=== PATIENT | female | born 1980 | race Caucasian/White ===

== ENCOUNTER 2020-11-10 12:38 | Inpatient (IN) | payer MEDICAID ==
[~2020-11-10] VITALS: Ht 162.6 cm; Wt 64.0 kg
[~2020-11-10 12:38] MED LIST: CHOL100018 PO; ESCI-8 PO; LACT30L PO; QUET200T PO
[2020-11-10] MEDS ORDERED: HALOPERIDOL 5 MG TABLET PO ONE (14:30)
[2020-11-10] MEDS ORDERED: LORazepam 1 MG TABLET PO ONE (14:30)
[2020-11-10 16:23] LABS: COVID AG,FIA SOURCE NASOPHARYNGEAL
[2020-11-10] MEDS ORDERED: ZOLPIDEM TARTRATE 10 MG TABLET PO PRN (16:45)
[2020-11-10 19:52] LABS: BASOPHILS % (AUTO) 0.8 % (0.0-2.0); HEMOGLOBIN 12.2 g/dL (12.0-16.0); LYMPHOCYTES # (AUTO) 3.8 K/uL (1.0-4.8); LYMPHOCYTES % (AUTO) 43.9 % (22.0-44.0); MEAN CORPUSCULAR HEMOGLOBIN 30.4 pg (26.0-34.0); MEAN CORPUSCULAR HGB CONC 33.8 G/dL (31.0-37.0); MEAN CORPUSCULAR VOLUME 90 fL (80-100); MONOCYTES # (AUTO) 0.8 K/uL (0.1-1.0); MONOCYTES % (AUTO) 9.2 % (2.0-9.0); NEUTROPHILS # (AUTO) 3.7 K/uL (1.8-7.7); NEUTROPHILS % (AUTO) 43.1 % (40.0-70.0); PLATELET COUNT (AUTO) 363 K/uL (150-450); RED CELL DISTRIBUTION WIDTH 14.7 % (11.5-14.5)
[2020-11-10 20:02] LABS: ANION GAP 10 mmol/L (8-16); CALCIUM, TOTAL 8.9 mg/dL (8.8-10.5); CARBON DIOXIDE 24 mmol/L (22-29); CHLORIDE 103 mmol/L (98-107); CREATININE 0.64 mg/dL (0.60-1.30); GLOMERULAR FILTR. RATE CALC > 60 mL/min (>60); GLUCOSE,RANDOM 74 mg/dL (70-110); POTASSIUM 3.2 mmol/L (3.5-5.1); SODIUM SERUM 137 mmol/L (136-145); UREA NITROGEN, BLOOD 6 mg/dL (7-18)
[2020-11-10 20:08] LABS: ALANINE AMINOTRANSFERASE 22 U/L (12-78); ALBUMIN 3.4 g/dL (3.4-5.0); ALKALINE PHOSPHATASE 64 U/L (46-116); ASPARTATE AMINOTRANSFERASE 20 U/L (15-37); BILIRUBIN,TOTAL 0.8 mg/dL (0.1-1.0); TOTAL PROTEIN, SERUM 6.7 g/dL (6.4-8.2)
[2020-11-11] MEDS ORDERED: INFLUENZA VIRUS VACCINE QVS 2020-21 (6MO+)/PF 60 MCG/0.5 ML SYRINGE IM ONE (00:30)
[2020-11-11 00:38] VITALS: BP 100/70
[2020-11-11] MEDS ORDERED: IBUPROFEN 400 MG TABLET PO PRN (07:45)
[2020-11-11] MEDS ORDERED: LOPERAMIDE HCL 2 MG CAPSULE PO PRN (07:45)
[2020-11-11] MEDS ORDERED: MAGNESIUM HYDROXIDE SUSPENSION 30 ML UDCUP PO PRN (07:45)
[2020-11-11] MEDS ORDERED: MAG HYDROX/AL HYDROX/SIMETH ES 30 ML SUSPENSION UDCUP PO PRN (07:45)
[2020-11-11] MEDS ORDERED: NICOTINE 14 MG/24 HOUR PATCH TD PRN (07:45)
[2020-11-11] MEDS ORDERED: CloNIDine HCL 0.1 MG TABLET PO PRN (07:45)
[2020-11-11] MEDS ORDERED: ACETAMINOPHEN 325 MG TABLET PO PRN (07:45)
[2020-11-11] MEDS ORDERED: ONDANSETRON HCL 4 MG TABLET PO PRN (07:45)
[2020-11-11] MEDS ORDERED: PETROLATUM,WHITE 28 GM JELLY TP PRN (07:45)
[2020-11-11] MEDS ORDERED: POTASSIUM CHLORIDE 20 MEQ ER TABLET PO ONE (07:45)
[2020-11-11] MEDS ORDERED: GuaiFENesin/D-METHORPHAN [SUGAR-FREE] 200-20MG/10 ML SYRUP UDCUP PO PRN (07:45)
[2020-11-11] MEDS ORDERED: ALBUTEROL SULFATE HFA 90 MCG/PUFF 8 GM INHALER IH PRN (07:45)
[2020-11-11] MEDS: LORazepam 2 MG TABLET PO PRN ×2 (09:02→21:10)
[2020-11-11] MEDS: ESCITALOPRAM OXALATE 10 MG TABLET PO SCH (12:52)
[2020-11-11 16:24] VITALS: BP 112/76
[2020-11-11] MEDS: HALOPERIDOL 5 MG TABLET PO PRN (21:09)
[2020-11-11] MEDS: QUEtiapine FUMARATE 200 MG TABLET PO SCH (21:11)
[2020-11-12 00:22] VITALS: BP 104/73
[2020-11-12] MEDS: ESCITALOPRAM OXALATE 10 MG TABLET PO SCH (08:09)
[2020-11-12 08:22] VITALS: BP 108/70
[2020-11-12 16:29] VITALS: BP 119/68
[2020-11-12] MEDS: QUEtiapine FUMARATE 200 MG TABLET PO SCH (21:59)
[2020-11-13 02:08] VITALS: BP 114/66
[2020-11-13 08:12] VITALS: BP 101/60
[2020-11-13] MEDS: ESCITALOPRAM OXALATE 10 MG TABLET PO SCH (08:30)
[2020-11-13 16:14] VITALS: BP 100/62
[2020-11-13] MEDS: QUEtiapine FUMARATE 200 MG TABLET PO SCH (20:10)
[2020-11-14 00:21] VITALS: BP 102/67
[2020-11-14 08:32] VITALS: BP 121/74
[2020-11-14] MEDS: ESCITALOPRAM OXALATE 10 MG TABLET PO SCH (09:00)
[2020-11-14] MEDS: LORazepam 2 MG TABLET PO PRN (09:00)
[2020-11-14 16:25] VITALS: BP 120/65
[2020-11-14] MEDS: QUEtiapine FUMARATE 300 MG TABLET PO SCH (20:26)
[2020-11-15 00:50] VITALS: BP 110/66
[2020-11-15] MEDS: ESCITALOPRAM OXALATE 10 MG TABLET PO SCH (08:22)
[2020-11-15] MEDS: LORazepam 2 MG TABLET PO PRN (08:22)
[2020-11-15 08:30] VITALS: BP 116/70
[2020-11-15 17:57] VITALS: BP 112/73
[2020-11-15] MEDS: QUEtiapine FUMARATE 300 MG TABLET PO SCH (20:06)
[2020-11-16 01:18] VITALS: BP 116/76
[2020-11-16] MEDS: ESCITALOPRAM OXALATE 10 MG TABLET PO SCH (08:42)
[2020-11-16] MEDS: LORazepam 2 MG TABLET PO PRN ×2 (08:42→20:30)
[2020-11-16] MEDS ORDERED: CHOL100044 PO (13:17)
[2020-11-16 16:26] VITALS: BP 105/63
[2020-11-16] MEDS: DOCUSATE SODIUM 100 MG CAPSULE PO PRN (16:57)
[2020-11-16] MEDS: QUEtiapine FUMARATE 300 MG TABLET PO SCH (20:14)
[2020-11-17 05:31] VITALS: BP 113/68
[2020-11-17 08:25] VITALS: BP 107/60
[2020-11-17] MEDS: ESCITALOPRAM OXALATE 10 MG TABLET PO SCH (09:00)
[2020-11-17] MEDS: LORazepam 2 MG TABLET PO PRN ×2 (14:30→20:19)
[2020-11-17 16:17] VITALS: BP 108/63
[2020-11-17] MEDS: DOCUSATE SODIUM 100 MG CAPSULE PO PRN (20:19)
[2020-11-17] MEDS: QUEtiapine FUMARATE 300 MG TABLET PO SCH (20:19)
[2020-11-17] MEDS: HALOPERIDOL 5 MG TABLET PO PRN (20:19)
[2020-11-18 05:41] VITALS: BP 108/62
[2020-11-18] MEDS: LORazepam 2 MG TABLET PO PRN ×2 (08:22→16:50)
[2020-11-18] MEDS: ESCITALOPRAM OXALATE 10 MG TABLET PO SCH (08:22)
[2020-11-18 16:09] VITALS: BP 102/61
[2020-11-18] MEDS: QUEtiapine FUMARATE 300 MG TABLET PO SCH (20:49)
[2020-11-19 01:33] VITALS: BP 104/73
[2020-11-19] MEDS: ESCITALOPRAM OXALATE 10 MG TABLET PO SCH (08:11)
[2020-11-19 08:13] VITALS: BP 121/74
== END 2020-11-19 13:00 | disposition home or self-care (01) | DRG 750 ==
LOC: EMS 12:42 → EDBD 12:42 → B3A 17:00 → EMS 20:26
DX: F25.1 Schizoaffective disorder, depressive type (principal); R45.851 Suicidal ideations; Z91.5 Personal history of self-harm; B19.10 Unspecified viral hepatitis B without hepatic coma; F10.10 Alcohol abuse, uncomplicated; Y90.9 Presence of alcohol in blood, level not specified; Z59.0 Homelessness; K59.00 Constipation, unspecified; E55.9 Vitamin D deficiency, unspecified; F17.200 Nicotine dependence, unspecified, uncomplicated; E87.6 Hypokalemia; Z20.822 Contact with and (suspected) exposure to COVID-19; Z28.21 Immunization not carried out because of patient refusal
CPT/HCPCS: 84132; 87426; 99285; G0480